=== PATIENT | female | born 1985 | race Caucasian/White ===

== ENCOUNTER 2021-07-18 16:57 | Emergency (ER) | payer BC ==
[2021-07-18] MEDS: Penicillin G Benzathine/Procaine 600-600 1.2 Millunits/2 ML Syringe IM ONE (18:52)
[2021-07-19 06:09] LABS: CORONAVIRUS COVID-19 NAA NEGATIVE (NEGATIVE); RESPIRATORY SYNCYTIAL VIR NAA NEGATIVE (NEGATIVE)
== END 2021-07-18 19:12 | disposition home or self-care (01) ==
LOC: LL.ED 16:57
DX: J02.0 Streptococcal pharyngitis (principal); Z20.822 Contact with and (suspected) exposure to COVID-19
CPT/HCPCS: 0241U; 87430; 96372; 99283; J0558